=== PATIENT | female | born 1975 | race Caucasian/White ===

== ENCOUNTER 2018-04-20 08:48 | Outpatient (CLI) | payer MEDICAID ==
[2018-04-20] MEDS ORDERED: iohexol 300mg/ml 100ml inj. ONE (09:15)
== END 2018-04-20 23:59 | disposition home or self-care (01) ==
LOC: 64 CT 08:48
PROVIDERS: ATTEND Surgery
DX: J92.9 Pleural plaque without asbestos (principal); J94.8 Other specified pleural conditions; Z90.49 Acquired absence of other specified parts of digestive tract
CPT/HCPCS: 71260; Q9967